=== PATIENT | male | born 1965 | race Caucasian/White ===

== ENCOUNTER 2020-06-15 17:50 | Emergency (ER) | payer OTHER ==
--- NOTE | 2020-06-15 18:26 | RADIOLOGY REPORT (SQ) ---
EXAM DESCRIPTION: HIP LEFT AP/LATERAL IMAGES COMPLETED DATE/TIME: 06/15/2020 6:12 pm REASON FOR STUDY: Hip pain COMPARISON: None. NUMBER OF VIEWS: Two views. TECHNIQUE: AP pelvis and additional frog leg view of the left hip. LIMITATIONS: None. FINDINGS: MINERALIZATION: Normal. LEFT HIP: No fracture. 6 cm lateral and 2.5 cm superior dislocation of the femoral component of the total hip arthroplasty. No worrisome bone lesions. RIGHT HIP: No fracture or dislocation. Moderate arthrosis. . Limited views. PUBIS AND ISCHIUM: No fracture. PELVIS: No fracture. SACRUM: No fracture or dislocation. No worrisome bone lesions. LOWER LUMBAR SPINE: No fracture or dislocation. No worrisome bone lesions. Mild degenerative disc di sease. SOFT TISSUES: No findings. OTHER: No other significant finding. IMPRESSION: 6 cm lateral and 2.5 cm superior dislocation of the femoral component of the total hip a rthroplasty. COMMENT: Pelvic fractures are often occult on plain radiographs. If strong clinical suspicion for fracture, recommend CT or MR. TECHNICAL DOCUMENTATION: JOB ID: [id number] [place]-[id number] 2010 [employer]- All Rights Reserved Reading location - IP/workstation name: [email or web address]
[2020-06-15] MEDS ORDERED: PROPOFOL INJ 200 MG/20 ML VIAL IV ONE ×2 (18:36→18:49)
--- NOTE | 2020-06-15 18:52 | ER Document Report ---
ED Hip Pain/Injury - General Chief Complaint: Hip Pain Stated Complaint: LEFT HIP PAIN Time Seen by Provider: 06/15/20 18:25 Primary Care Provider: AMAURY WILSON DO [NO LOCAL MD] - Follow up as needed Mode of Arrival: Medic Information source: Patient Notes: This 54-year-old man presents to the emergency department history of hip replacement surgery 05/21/2020 at [facility]. He states that he was out in the [place] today standing got ready to turn and felt a pop and then had excruciating pain and had to go to the ground. His hip prosthesis di slocated he attempted to crawl out of the [place], he called 911 from his cell phone and EMS arrived and he was transported to the hospital. He was given 50 mcg of fentanyl in route. TRAVEL OUTSIDE OF THE [place] 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 See above Past Surgical History: Reports: Hx Orthopedic Surgery Review of Systems - Review of Systems Notes: Constitutional: Negative for fever. HENT: Negative for sore throat. Eyes: Negative for visual changes. Cardiovascular: Negative for chest pain. Respiratory: Negative for shortness of breath. Gastrointestinal: Negative for abdominal pain, vomiting or diarrhea. Genitourinary: Negative for dysuria. Musculoskeletal: See HPI Skin: Negative for rash. Neurological: Negative for headaches, weakness or numbness. 10 point ROS negative except as marked above and in HPI. Physical Exam - Vital signs Vitals: Temp Pulse Resp BP Pulse Ox 98 F 88 16 149/96 H 100 06/15/20 18:12 06/15/20 18:12 06/15/20 18:12 06/15/20 18:12 06/15/20 18:12 - Notes Notes: PHYSICAL EXAMINATION: Physical Exam: General: Well-nourished well-developed 54-year-old male in no acute distress HEENT: NC/AT, pupils equal round and reactive to light, MM moist,nares clear, oropharynx clear, airway patent Neck: supple, no adenopathy, no masses. Good range of motion Lungs: clear, no wheezing, no rales no rhonchi CVS: Regular rate and rhythm no murmur gallop or rub Abdomen: Soft, active, nontender, no masses, no hepatosplenomegaly Ext: Tenderness in the left hip area. Neuro: Alert and responsive, moving all 4 extremities on command, cranial nerves intact, no focal findings Skin: Intact no open lesions, no rash PSYCH: Normal mood, normal affect. Course - Re-evaluation Re-evalutation: 06/15/20 18:58 I discussed with the patient the procedure to reduce the left hip dislocation. I explained that he would be given sedation for the procedure, propofol, the patient is in agreement with that plan. The hip is reduced, knee immobilizer is placed on the left leg. I have asked the patient to avoid activities which might put him at risk of re-dislocation. I have also asked him to touch base w ith his orthopedist and explained that he had a dislocation of the prosthesis and reduction performed at this hospital. The patient acknowledges understanding of this plan and is in agreement with the procedure. - Vital Signs Vital signs: Temp Pulse Resp BP Pulse Ox 98 F 88 15 126/95 H 99 06/15/20 18:12 06/15/20 18:12 06/15/20 20:06 06/15/20 20:06 06/15/20 20:06 Procedures - Conscious Sedation Conscious sedation Time started: 18:50 Time completed: 18:55 Consent obtained: Yes Indication: Left hip dislocation Emergent conditions applies.: E. - ASA Classification Normal healthy pt.: P1. - ASA Classification Airway Evaluation: Normal anatomy Mallampati Classification: Class 1 Used during procedure: IV access obtained, Pulse ox on pt., disk grinder on pt. Medications administered: Diprivan - Total of 110 mg propofol IV Reversal agents: None I personally performed/intraservice time: Sedation Complications: No - Joint Reduction/Fracture Care Left Hip Time completed: 18:55 Consent obtained: Yes - Verbal consent obtained Conscious sedation: Yes Pre-procedure NV exam: Yes Manipulation comment: Patient has a dislocated left hip, prosthesis Post-procedure NV exam: Yes Post-reduction x-ray: Joint reduced Reduction attempts: 1 Complications: No Notes: 06/15/20 18:53 Reduction of the left hip dislocation achieved with torque and fulcrum procedure. The hip reduced with minimal effort. Discharge - Discharge Clinical Impression: Status post total hip replacement, left Hip dislocation, left Qualifiers: Encounter type: initial encounter Qualified Code(s): S73.005A - Unspecified dislocation of left hip, initial encounter Condition: Good Disposition: HOME, SELF-CARE Instructions: Dislocated Artificial Hip ([facility]), Post Sedation Instructions ([facility]) Additional Instructions: You were seen in the emergency department tonight with dislocated left hip prosthesis. Please contact your orthopedist regarding the dislocation. Please follow the instructions with regards to post reduction of the prosthesis. There are activities that you should avoid to reduce the risk of recurrence of the dislocation. Please make note from the attached information. HOME CARE INSTRUCTIONS & INFORMATION: Thank you for choosing us for your medical needs. We hope you're satisfied with the care you received. After you leave, you must properly care for your problem and, at the same time, observe its progress. Any condition can change. Some illnesses can change rapidly over hours or days. If your condition worsens, return to the Emergency Department or see your physician promptly. ABOUT YOUR X-RAYS AND EKG'S: If you had an EKG or X-rays taken, they have been read by the Emergency Physician. The X-rays and EKG's will also be read by a Radiologist or [employer] Application Developer within 24 hours. If discrepancies are noted, you w ill be notified by telephone. Please be certain the ED has a correct telephone number & address where you can be reached. Also, realize that some fractures or abnormalities do not show up on initial X-rays. If your symptoms continue, see your physician. ABOUT YOUR LABORATORY TEST: If you had laboratory tests, the results have been reviewed by the Emergency Physician. Some test results (for example cultures) may not be available for several days. You will be contacted if any test result shows you need additional treatment. Please be certain the ED has a correct telephone number and address where you can be reached. ABOUT YOUR MEDICATIONS: You will receive instructions on how to take your medicine on the prescription label you receive. Additional information may be provided by the Pharmacy. If you have questions afterwards, call the ED for clarification or further instructions. Some prescribed medications may cause drowsiness. Do not perform tasks such as driving a car or operating machinery without consulting your Pharmacist. If you feel you need a refill of pain medication, your condition will need re-evaluation. Please do not call for a refill of any medication. ABOUT YOUR SIGNATURE: Signature of this document acknowledges to followin. Understanding that you received emergency treatment and that you may be released before al medical problems are known or treated. Please be certain the ED has a correct phone number & address where you can be reached. 2. Acknowledgement that you will arrange for follow-up care as recommended. 3. Authorization for the Emergency Physician to provide information to your follow-up Physician in order to maximize your care. AT ANY TIME, IF YOUR SYMPTOMS CHANGE SIGNIFICANTLY OR WORSEN OR YOU DEVELOP NEW SYMPTOMS, RETURN TO THE EMERGENCY DEPARTMENT IMMEDIATELY FOR RE-EVALUATION. OUR GOAL IS TO PROVIDE EXCELLENT MEDICAL CARE! WE HOPE THAT WE HAVE MET YOUR EXPECTATIONS DURING YOUR EMERGENCY DEPARTMENT VISIT AND THAT YOU FEEL YOU HAVE RECEIVED EXCELLENT CARE! Referrals: AMAURY WILSON, DO [NO LOCAL MD] - Follow up as needed
--- NOTE | 2020-06-15 19:18 | RADIOLOGY REPORT (SQ) ---
EXAM DESCRIPTION: HIP LEFT AP/LATERAL IMAGES COMPLETED DATE/TIME: 06/15/2020 7:02 pm REASON FOR STUDY: Post reduction left hip dislocation COMPARISON: Earlier exam same date NUMBER OF VIEWS: Two views. TECHNIQUE: AP and frog-leg view of the left hip. LIMITATIONS: None. FINDINGS: MINERALIZATION: Normal. BONES: No fracture or dislocation. No worrisome bone lesions. SOFT TISSUES: No findings. OTHER: No other significant finding. IMPRESSION: Relocated left total hip arthroplasty hardware. . COMMENT: Pelvic fractures are often occult on plain radiographs. If strong clinical suspicion for fracture, recommend CT or MR. TECHNICAL DOCUMENTATION: JOB ID: [id number] [place]-72 2010 [employer]- All Rights Reserved Reading location - IP/workstation name: [email or web address]
[2020-06-15 20:18] VITALS: BP 134/103
== END 2020-06-15 20:20 | disposition home or self-care (01) ==
LOC: ER 17:50
DX: T84.021A Dislocation of internal left hip prosthesis, initial encounter (principal); X50.0XXA Overexertion from strenuous movement or load, initial encounter; Y92.828 Other wilderness area as the place of occurrence of the external cause; Z96.642 Presence of left artificial hip joint
CPT/HCPCS: 99284; 99152; 73502; 27265; J2704

== ENCOUNTER 2020-07-04 16:15 | Emergency (ER) | payer OTHER ==
--- NOTE | 2020-07-04 17:35 | RADIOLOGY REPORT (SQ) ---
EXAM DESCRIPTION: HIP LEFT AP/LATERAL IMAGES COMPLETED DATE/TIME: 07/04/2020 5:00 pm REASON FOR STUDY: shortening and outward rotation, fall injury. COMPARISON: None. NUMBER OF VIEWS: Two views. TECHNIQUE: AP pelvis and additional frog legview of the left hip. LIMITATIONS: None. FINDINGS: MINERALIZATION: Normal. LEFT HIP: Left hip arthroplasty that is dislocated. RIGHT HIP: No fracture or dislocation. No worrisome bone lesions. Limited views. PUBIS AND ISCHIUM: No fracture. PELVIS: No fracture. SACRUM: No fracture or dislocation. No worrisome bone lesions. LOWER LUMBAR SPINE: No fracture or dislocation. No worrisome bone lesions. No significant disc disea se. SOFT TISSUES: No findings. OTHER: No other significant finding. IMPRESSION: Left hip arthroplasty dislocation. No acute fracture. TECHNICAL DOCUMENTATION: JOB ID: [id number] 2010 [employer]- All Rights Reserved Reading location - IP/workstation name: [email or web address]
--- NOTE | 2020-07-04 18:37 | ER Document Report ---
ED Medical Screen (RME) - General Chief Complaint: Hip Injury Stated Complaint: POSSIBLE DISLOCATED HIP Time Seen by Provider: 07/04/20 18:23 Primary Care Provider: UDAY CORTES [Primary Care Provider] - Follow up as needed Notes: Patient is a 54-year-old male who presents to the emergency department with a chief complaint of left hip pain. Patient has history of 2 hip placements on the left. His last hip replacement was on May 21. Patient states that he was just walking and it slipped out of place. Patient states that he was supposed to have a brace on, but [facility] has not approved it. Exam: Shortening noted to left leg. Dorsalis pedis and posterior tibial pulses 2+. Patient able to move foot. I have greeted and performed a rapid initial assessment of this patient. A comprehensive ED assessment and evaluation of the patient, analysis of test results and completion of medical decision making process will be conducted by an additional ED providers. TRAVEL OUTSIDE OF THE [place] IN LAST 30 DAYS: No - Related Data Allergies/Adverse Reactions: acetaminophen [From Tylenol] Allergy (Verified 07/04/20 16:39) Home Medications: lisinopril. oxycodone. 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 See above Past Surgical History: Reports: Hx Orthopedic Surgery - l. hip x2 Physical Exam - Vital signs Vitals: Temp Pulse Resp BP Pulse Ox 98.6 F 95 16 142/99 H 100 07/04/20 16:34 07/04/20 16:34 07/04/20 16:34 07/04/20 16:34 07/04/20 16:34 Course - Vital Signs Vital signs: Temp Pulse Resp BP Pulse Ox 98.6 F 95 16 142/99 H 100 07/04/20 16:34 07/04/20 16:34 07/04/20 16:34 07/04/20 16:34 07/04/20 16:34 Doctor's Discharge - Discharge Referrals: [facility] [Primary Care Provider] - Follow up as needed
[2020-07-04] MEDS ORDERED: FENTANYL CITRATE INJ/PF 100 MCG/2 ML AMPUL IV ONE (18:38)
[2020-07-04] MEDS ORDERED: PROPOFOL INJ 200 MG/20 ML VIAL IV ONE (18:58)
[2020-07-04] MEDS ORDERED: FENTANYL CITRATE INJ/PF 100 MCG/2 ML AMPUL ONE (20:17)
--- NOTE | 2020-07-04 21:58 | RADIOLOGY REPORT (SQ) ---
EXAM DESCRIPTION: XR PELVIS 1-2 VIEWS COMPLETED DATE/TME: 07/04/2020 19:58 CLINICAL HISTORY: 54 years Male hip reduction COMPARISON: 07/04/2020 4:59 PM. TECHNIQUE: Single AP view of the pelvis. FINDINGS: When compared to this previous exam there has been interval relocation of the left hip prosthesis. There is anatomic alignment. No evidence of periprosthetic fracture. Calcification along the right hip and thigh which may reflect myositis ossificans IMPRESSION: Interval relocation of the left hip when compared to the prior
[2020-07-04 22:06] VITALS: BP 138/95
[2020-07-04] MEDS ORDERED: OXYCODONE HCL IR 5 MG TABLET PO ONE (22:34)
--- NOTE | 2020-07-04 22:42 | ER Document Report ---
ED Hip Pain/Injury - General Chief Complaint: Hip Injury Stated Complaint: POSSIBLE DISLOCATED HIP Time Seen by Provider: 07/04/20 18:23 Primary Care Provider: [facility] [Primary Care Provider] - Follow up as needed TRAVEL OUTSIDE OF THE [place] IN LAST 30 DAYS: No - HPI Patient complains to provider of: Hip Occurred: Just prior to arrival Onset/Duration: Sudden Notes: Patient is a 54-year-old male with a past medical history of hip replacement 2 years ago at [facility] who presents with a hip dislocation. Patient states he was in the ER several weeks ago for hip dislocation as well. Today, patient was walking in the [place] when he stepped on the ground and the dislocation occurred. This occurred right before he arrived to the ED. Patient is brought in by EMS. He denies any other injuries. Patient did not hit his head. - Related Data Allergies/Adverse Reactions: acetaminophen [From Tylenol] Allergy (Verified 07/04/20 16:39) Home Medications: lisinopril. oxycodone. 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 See above Past Surgical History: Reports: Hx Orthopedic Surgery - l. hip x2 Review of Systems - Review of Systems Notes: CONSTITUTIONAL: No fever, fatigue or weight loss. SKIN: No rash. HENT: No congestion, ear pain, or sore throat. EYES: No recent vision problems or eye pain. CARDIOVASCULAR: No chest pain or edema. RESPIRATORY: No cough, shortness of breath, congestion, or wheezing. GASTROINTESTINAL: No abdominal pain, nausea, vomiting, bloody stools or diarrhea. MUSCULOSKELETAL: Positive for left hip pain. NEUROLOGIC: No seizures. No headache, focal weakness or sensory changes. HEMATOLOGIC: No unusual bruising or bleeding. PSYCHIATRIC: No depression or anxiety. Physical Exam - Vital signs Vitals: Temp Pulse Resp BP Pulse Ox 98.6 F 95 16 142/99 H 100 07/04/20 16:34 07/04/20 16:34 07/04/20 16:34 07/04/20 16:34 07/04/20 16:34 - General In distress: Mild Notes: VITAL SIGNS: Within normal limits. GENERAL: No acute distress, non-toxic appearance. HEAD: Normal with no signs of head trauma. EYES: EOMI, conjunctiva normal, no discharge. EARS: Hearing grossly intact. NOSE: Normal. NECK: Normal range of motion, no tenderness, supple, no lymphadenopathy, No adenopathy, no JVD. CHEST: Clear breath sounds bilaterally. No wheezes, rales, or rhonchi. CARDIAC: Regular rate and rhythm. S1 and S2, without murmurs, gallops, or rubs. VASCULAR: No Edema. Peripheral pulses normal and equal in all extremities. Strong dorsalis pedis pulse on the left lower extremity ABDOMEN: Normal and soft with no tenderness, no masses or pulsatile masses. GENITOURINARY: Normal, No tenderness LYMPATHTIC: No lymphadenopathy noted. MUSCULOSKELETAL: Left leg is shortened and externally rotated with pain at the left hip consistent with hip dislocation. NEUROLOGICAL: Alert and oriented x 3. No focal sensory or strength deficits. Speech normal. Follows commands appropriately. PSYCHIATRIC: Normal Affect, judgement and mood. SKIN: Normal appearance with no rashes or lesions. Course - Re-evaluation Re-evalutation: 07/05/20 02:06 Patient's hip was successfully reduced. He was placed into a knee immobilizer. Patient was monitored for sedation and is at baseline. He states he is ready to go home. Patient was informed that he needs to follow-up with his orthopedic surgeon as this is his second hip dislocation in the past month. Patient is very agreeable to this. His will take him home. - Vital Signs Vital signs: Temp Pulse Resp BP Pulse Ox 98.6 F 86 15 138/95 H 97 07/04/20 16:34 07/04/20 20:40 07/04/20 22:01 07/04/20 22:00 07/04/20 22:01 - Diagnostic Test Radiology reviewed: Image reviewed, Reports reviewed Procedures - Conscious Sedation Conscious sedation Time started: 19:30 Time completed: 20:00 Consent obtained: Yes Indication: Hip dislocation Normal healthy pt.: P1. - ASA Classification Airway Evaluation: Normal anatomy Used during procedure: Suction available, IV access obtained, Pulse ox on pt., classroom monitor on pt. Medications administered: Fentanyl, Other - Propofol Reversal agents: None I personally performed/intraservice time: Sedation, 30 min or less Complications: No - Joint Reduction/Fracture Care Left Hip Time completed: 20:00 Consent obtained: Yes Conscious sedation: Yes Pre-procedure NV exam: Yes - Strong left dorsalis pedis pulse, sensation intact Post-procedure NV exam: Yes - Strong left dorsalis pedis pulse, sensation intact Post-reduction x-ray: Joint reduced, No fracture seen Reduction attempts: 3 Complications: No Notes: 07/05/20 02:05 I was in the room to assist the MADI who performed the reduction Discharge - Discharge Clinical Impression: Hip dislocation, left Qualifiers: Encounter type: initial encounter Qualified Code(s): S73.005A - Unspecified dislocation of left hip, initial encounter Condition: Stable Disposition: HOME, SELF-CARE Instructions: Dislocated Artificial Hip ([facility]) [facility]errals: [facility] [Primary Care Provider] - Follow up as needed
== END 2020-07-04 22:56 | disposition home or self-care (01) ==
LOC: ER 16:15
DX: T84.021A Dislocation of internal left hip prosthesis, initial encounter (principal); Z88.6 Allergy status to analgesic agent; Z79.899 Other long term (current) drug therapy; Z79.891 Long term (current) use of opiate analgesic; Z79.82 Long term (current) use of aspirin; X58.XXXA Exposure to other specified factors, initial encounter; Y93.01 Activity, walking, marching and hiking; Y92.821 Forest as the place of occurrence of the external cause
CPT/HCPCS: 96376; 99285; 99153; 99152; 96374; 73502; 72170; 27265; J3010; J2704